=== PATIENT | female | born 1950 | race Caucasian/White ===

== ENCOUNTER → 2016-12-06 | Outpatient (CLI) | payer MEDICARE, BC | END | disposition home or self-care (01) | LOC: CFH 10:57 | PROVIDERS: ATTEND Nurse Practitioner Family | DX: S82.001D Unspecified fracture of right patella, subsequent encounter for closed fracture with routine healing (principal); X58.XXXD Exposure to other specified factors, subsequent encounter | CPT/HCPCS: 71020 ==

== ENCOUNTER → 2017-04-25 | Outpatient (CLI) | payer MEDICARE, BC | END | disposition home or self-care (01) | LOC: CFH 12:28 | PROVIDERS: ATTEND Family Medicine | DX: Z12.31 Encounter for screening mammogram for malignant neoplasm of breast (principal) | CPT/HCPCS: 77067 ==

== ENCOUNTER 2017-06-12 10:31 | Day surgery (SDC) | payer MEDICARE, BC ==
[~2017-06-12] VITALS: Ht 167.6 cm; Wt 72.7 kg
[2017-06-12] MEDS ORDERED: SPIR25TA3 PO (11:06)
[2017-06-12] MEDS ORDERED: LISI5TAB7 PO (11:06)
[2017-06-12] MEDS ORDERED: CARV6.252 PO (11:06)
[2017-06-12] MEDS ORDERED: PANT40TA3 PO (11:08)
[2017-06-12] MEDS ORDERED: SODIUM CHLORIDE 0.9% 1,000 ML IV SCH (11:30)
[2017-06-12] MEDS ORDERED: PLEASE ENTER HEIGHT AND WEIGHT MC SCH (11:30)
== END 2017-06-12 12:00 ==
LOC: CACL 10:31 → EDSTATUS 12:30
PROVIDERS: ATTEND Internal Medicine Cardiovascular Disease
DX: I42.8 Other cardiomyopathies (principal); I34.0 Nonrheumatic mitral (valve) insufficiency; I36.1 Nonrheumatic tricuspid (valve) insufficiency; I44.7 Left bundle-branch block, unspecified; I10 Essential (primary) hypertension; K21.9 Gastro-esophageal reflux disease without esophagitis; E78.4 Other hyperlipidemia; Z79.899 Other long term (current) drug therapy
CPT/HCPCS: 93312; 93325

== ENCOUNTER → 2018-04-22 | Outpatient (CLI) | payer MEDICARE, BC ==
[~2018-04-22] MED LIST: CARV6.252 PO; LISI5TAB7 PO; PANT40TA3 PO; SPIR25TA5 PO
== END | disposition home or self-care (01) ==
LOC: CFH 14:02
PROVIDERS: ATTEND Family Medicine
DX: Z12.31 Encounter for screening mammogram for malignant neoplasm of breast (principal)
CPT/HCPCS: 77067

== ENCOUNTER → 2018-10-12 | Outpatient (CLI) | payer MEDICARE, BC | END | disposition home or self-care (01) | LOC: CVU 10:39 | PROVIDERS: ATTEND Internal Medicine Cardiovascular Disease | DX: I08.0 Rheumatic disorders of both mitral and aortic valves (principal); I10 Essential (primary) hypertension; E78.5 Hyperlipidemia, unspecified | CPT/HCPCS: 93306 ==

== ENCOUNTER 2019-03-08 08:43 | Outpatient (CLI) | payer MEDICARE, BC | END 2019-03-08 23:59 | disposition home or self-care (01) | LOC: CFH 08:43 | PROVIDERS: ATTEND Internal Medicine Cardiovascular Disease | DX: I25.10 Atherosclerotic heart disease of native coronary artery without angina pectoris (principal); I25.83 Coronary atherosclerosis due to lipid rich plaque; E78.5 Hyperlipidemia, unspecified | CPT/HCPCS: 75571 ==

== ENCOUNTER 2020-08-14 12:23 | Emergency (ER) | payer MEDICARE, BC ==
[~2020-08-14] VITALS: Ht 167.6 cm; Wt 72.6 kg
[2020-08-14] MEDS ORDERED: ASPIRIN 81 MG TABLET CHEW ONE (12:45)
[2020-08-14 12:58] VITALS: BP 163/72
[2020-08-14] MEDS ORDERED: ASPIRIN 81 MG TABLET CHEW PO ONE (13:00)
--- NOTE | 2020-08-14 13:06 | NUR ---
PT CAME IN [place] CP X 1 MONTH. "ITS UNDER MY LEFT BREAST, I HAVE BREAST IMPLANTS. BUT I ALSO HAVE CARDIAC HX SO I FELT I NEEDED TO COME IN". EKG COMPLETE. CONNECTED TO ALL MONITORING EQUIPMENT. LABS DRAWN.
[2020-08-14 13:08] LABS: BASOPHILS % (AUTO) 1 % (0-1); EOSINOPHILS % (AUTO) 4 % (1-7); LYMPHOCYTES % (AUTO) 36 % (22-44); MEAN CORPUSCULAR HEMOGLOBIN 30.9 pg (27.0-34.8); MEAN CORPUSCULAR HGB CONC 34.1 g/dL (32.4-35.8); MEAN PLATELET VOLUME 8.5 fL (7.4-10.4); MONOCYTES % (AUTO) 7 % (2-9); NEUTROPHILS % (AUTO) 53 % (42-75); PLATELET COUNT 280 x10^3/uL (130-400); RED BLOOD COUNT 4.94 x10^6/uL (3.82-5.3)
[2020-08-14 13:13] LABS: ALANINE AMINOTRANSFERASE 35 U/L (12-78); ALBUMIN 4.4 g/dL (3.4-5.0); ANION GAP 5 mmol/L (5-15); CALCIUM 9.3 mg/dL (8.5-10.1); CHLORIDE 107 mmol/L (98-107); CREATININE 0.86 mg/dL (0.55-1.02)
[2020-08-14 13:17] LABS: ALKALINE PHOSPHATASE 71 U/L (45-117); BILIRUBIN,TOTAL 0.5 mg/dL (0.2-1.0); TOTAL PROTEIN 8.5 g/dL (6.4-8.2); TROPONIN I < 0.015 ng/mL (0.000-0.045)
[2020-08-14 13:19] LABS: MD NO
== END 2020-08-14 13:52 | disposition home or self-care (01) ==
LOC: ED 13:49
DX: R07.89 Other chest pain (principal); Z98.82 Breast implant status; I44.7 Left bundle-branch block, unspecified; I50.9 Heart failure, unspecified
CPT/HCPCS: 36415; 71045; 80053; 84484; 85025; 93005; 99285

== ENCOUNTER → 2020-08-29 | Outpatient (CLI) | payer MEDICARE, BC | END | disposition home or self-care (01) | LOC: CFH 10:48 | PROVIDERS: ATTEND Family Medicine | DX: Z12.31 Encounter for screening mammogram for malignant neoplasm of breast (principal) | CPT/HCPCS: 77067 ==

== ENCOUNTER → 2020-09-06 | Outpatient (CLI) | payer MEDICARE, BC | END | disposition home or self-care (01) | LOC: CFH 07:35 | PROVIDERS: ATTEND Nurse Practitioner Family | DX: I08.1 Rheumatic disorders of both mitral and tricuspid valves (principal); I10 Essential (primary) hypertension; E78.5 Hyperlipidemia, unspecified; Z98.82 Breast implant status | CPT/HCPCS: 93306 ==

== ENCOUNTER → 2020-09-18 | Outpatient (CLI) | payer MEDICARE, BC ==
[~2020-09-18] MED LIST changes: +REGADENOSON 0.4 MG/5 ML SYRINGE ONE
== END | disposition home or self-care (01) ==
LOC: CFH 07:27
PROVIDERS: ATTEND Nurse Practitioner Family
DX: Z01.810 Encounter for preprocedural cardiovascular examination (principal); I44.7 Left bundle-branch block, unspecified
CPT/HCPCS: 78452; 93017; A9502; J2785